=== PATIENT | female | born 1960 | race Caucasian/White ===

== ENCOUNTER 2017-04-27 23:23 | Inpatient (IN) | payer OTHER ==
[~2017-04-27] VITALS: Ht 152.4 cm; Wt 66.8 kg
[~2017-04-27 23:23] MED LIST: ACET500C5 PO; ERYTOPOI LEFT EYE; OMEP40CA6 PO
[2017-04-27 23:34] VITALS: Ht 152.4 cm; Wt 66.8 kg
[2017-04-27] MEDS ORDERED: SOD CHLORIDE 0.9% 500 ML IV STA (23:53)
[2017-04-28 00:51] LABS: INR 0.89; PT RATIO 0.9
[2017-04-28 00:52] LABS: PARTIAL THROMBOPLASTIN TIME 34.8 Sec (25.0-35.0)
[2017-04-28 00:54] LABS: ADD UMIC YES; UR ASCORBIC ACID NEGATIVE (NEGATIVE); UR BILIRUBIN (Dip) NEGATIVE (NEGATIVE); UR BLOOD (Dip) NEGATIVE (NEGATIVE); UR CLARITY CLEAR (CLEAR); UR COLOR COLORLESS (YELLOW); UR GLUCOSE (Dip) NEGATIVE (NEGATIVE); UR KETONES (Dip) NEGATIVE (NEGATIVE); UR LEUKOCYTE ESTERASE (Dip) TRACE Leu/ul (NEGATIVE); UR NITRITE (Dip) NEGATIVE (NEGATIVE); UR RBC 0 /HPF (0-5); UR SPECIFIC GRAVITY (Dip) 1.001 (1.003-1.030); UR TOTAL PROTEIN (Dip) NEGATIVE (NEGATIVE); UR UROBILINOGEN (Dip) NEGATIVE (NEGATIVE)
[2017-04-28 01:10] LABS: BASOPHILS % 0.6 % (0.0-2.0); EOSINOPHILS # 0.1 10^3/ul (0.0-0.5); EOSINOPHILS % 0.8 % (0.0-7.0); HEMATOCRIT 41.5 % (37.0-47.0); HEMOGLOBIN 13.7 g/dl (12.0-16.0); LYMPHOCYTES # 1.7 10^3/ul (0.8-2.9); LYMPHOCYTES % 25.3 % (15.0-51.0); MEAN CORPUSCULAR HEMOGLOBIN 28.7 pg (29.0-33.0); MONOCYTE # 0.6 10^3/ul (0.3-0.9); MONOCYTES % 9.1 % (0.0-11.0); NEUTROPHIL # 4.2 10^3/ul (1.6-7.5); PLATELET COUNT 277 10^3/UL (140-415); RED BLOOD COUNT 4.77 10^6/ul (4.20-5.40); RED CELL DISTRIBUTION WIDTH 13.2 % (11.5-14.5); WHITE BLOOD COUNT 6.6 10^3/ul (4.8-10.8)
[2017-04-28 01:13] LABS: ALANINE AMINOTRANSFERASE 47 IU/L (13-69); ALBUMIN/GLOBULIN RATIO 1.61; ALKALINE PHOSPHATASE 92 IU/L (42-121); ANION GAP 17 (8-16); ASPARTATE AMINO TRANSFERASE 33 IU/L (15-46); BILIRUBIN,INDIRECT 0.2 mg/dl (0-1.1); BILIRUBIN,TOTAL 0.2 mg/dl (0.2-1.3); BLOOD UREA NITROGEN 12 mg/dl (7-20); CALCIUM 9.7 mg/dl (8.4-10.2); CARBON DIOXIDE 26 mmol/L (21-31); CHLORIDE 104 mmol/L (97-110); CREATININE 0.58 mg/dl (0.44-1.00); GLUCOSE 112 mg/dl (70-220); SODIUM 143 mmol/L (135-144); TOTAL PROTEIN 8.1 g/dl (6.1-8.1)
[2017-04-28 01:17] LABS: ACETAMINOPHEN < 10.0 ug/ml (10.0-30.0); ETHANOL < 10.0 mg/dl; SALICYLATE < 1.0 mg/dl (5.0-30.0)
[2017-04-28 02:12] LABS: TROPONIN-I < 0.012 ng/ml (0.00-0.12)
[2017-04-28 02:12] LABS: BARBITURATES Negative (NEGATIVE); BENZODIAZEPINES Negative (NEGATIVE); CANNABINOIDS Negative (NEGATIVE); COCAINE Negative (NEGATIVE); OPIATES Negative (NEGATIVE)
--- NOTE | 2017-04-28 02:56 | RADRPT ---
PROCEDURE: Chest. CLINICAL INDICATION: Chest pain. TECHNIQUE: Single frontal view of the chest was obtained. COMPARISON: None. FINDINGS: The cardiac silhouette is within normal limits. The aortic arch is unremarkable. There is no focal consolidation, vascular congestion or pleural effusion. There is no pneumothorax. IMPRESSION: No evidence for active cardiopulmonary disease. .Nick Sweet MD, MD Date Time Electronically viewed and signed by .Nick Sweet MD, MD on 04/28/2017 02:56 .T/
[2017-04-28] MEDS ORDERED: LORA10CA PO (03:14)
--- NOTE | 2017-04-28 03:23 | RADRPT ---
PROCEDURE: CT head, without contrast. CLINICAL INDICATION: Altered mental status. TECHNIQUE: Noncontrast CT examination of the head, with axial, sagittal and coronal reformatted im ages. Automated dose exposure control was employed. CTDI: 45.01 and DLP: 720.23 COMPARISON: 08/14/2013. FINDINGS: No acute hemorrhage. Subarachnoid spaces are substantially preserved and symmetric. Ventricles ar e unremarkable. No mass effect. Duncan-white matter distinction is preserved without evident decreased attenuation t o suggest acute or recent infarct. Sinuses and osseous structures are unremarkable. IMPRESSION: No acute process in the head. RPTAT: [facility] Physician Nia Date Time Electronically viewed and signed by Physician Nia on 04/28/2017 03:23 RS/
--- NOTE | 2017-04-28 05:29 | ERD ---
ER Documentation Chief Complaint Chief Complaint DAUGHTER STATES PATIENT HAS HAD PERIODS OF CONFUSION TONIGHT P [facility]VENT[facility] HPI This is a 56-year-old female has had periods of confusion that worsened today. It started 3 days ago per the daughter. And the patient. Patient is forgetful about where she is throughout the day. No nausea no vomiting no chills. No focal motor neurological complaints. No visual acuity changes. No other current issues. Patient currently speaks in coherent sentences and answers questions appropriately ROS All systems reviewed and are negative except as per history of present illness. Medications Home Meds Active Scripts Acetaminophen* (Tylophen*) 500 Mg Capsule, 1 CAP PO Q6H Y for PAIN AND OR ELEVATED TEMP, #30 CAP Prov:EARLINE MENESES PA-C 05/17/16 Reported Medications Loratadine* (Claritin*) 10 Mg Capsule, 10 MG PO DAILY, CAP 04/28/17 Omeprazole* (Omeprazole*) 40 Mg Capsule.dr, 40 MG PO QAM, #30 CAP 08/07/15 Discontinued Scripts Erythromycin* (Erythromycin* Ophthalmic) 1 Applic Oint, 1 APPLIC LEFT EYE QID for 7 Days, EA Prov:EARLINE MENESES PA-C 05/17/16 Allergies Allergies: Coded Allergies: penicillin (Verified Allergy, Unknown, 04/27/17) PMhx/Soc History of Surgery: Yes (hysterectomy) Anesthesia Reaction: No Hx Neurological Disorder: No Hx Respiratory Disorders: No Hx Cardiac Disorders: No Hx Psychiatric Problems: No Hx Miscellaneous Medical Probl: No Hx Alcohol Use: Yes (OCCASIONAL) Hx Substance Use: No Hx Tobacco Use: No Smoking Status: Never smoker Physical Exam Vitals Vital Signs Date Time Temp Pulse Resp B/P Pulse Ox O2 Delivery O2 Flow Rate FiO2 04/28/17 05:00 97.7 67 13 135/89 97 Room Air 04/28/17 04:00 97.7 71 14 132/92 99 Room Air 04/28/17 03:00 97.1 79 16 132/83 97 Room Air 04/28/17 02:00 97.1 80 17 144/86 99 Room Air 04/28/17 01:00 97.4 79 12 149/88 99 Room Air 04/28/17 00:25 97.0 88 19 189/102 98 Room Air 04/27/17 23:34 97.0 84 20 173/88 98 Physical Exam Const: [] Head: Atraumatic Eyes: Normal Conjunctiva ENT: Normal External Ears, Nose and Mouth. Neck: Full range of motion..~ No meningismus. Resp: Clear to auscultation bilaterally Cardio: Regular rate and rhythm, no murmurs Abd: Soft, non tender, non distended. Normal bowel sounds Skin: No petechiae or rashes Back: No midline or flank tenderness Ext: No cyanosis, or edema Neur: Awake and alert Psych: Normal Mood and Affect Result Diagram: 04/27/17 0010 04/27/17 0010 Results 24 hrs Laboratory Tests Test 04/27/17 00:10 04/28/17 00:05 04/28/17 00:53 White Blood Count 6.610^3/ul Red Blood Count 4.7710^6/ul Hemoglobin 13.7g/dl Hematocrit 41.5% Mean Corpuscular Volume 87.0fl Mean Corpuscular Hemoglobin 28.7pg Mean Corpuscular Hemoglobin Concent 33.0g/dl Red Cell Distribution Width 13.2% Platelet Count 77337^3/UL Mean Platelet Volume 11.0fl Neutrophils % 64.0% Lymphocytes % 25.3% Monocytes % 9.1% Eosinophils % 0.8% Basophils % 0.6% Nucleated Red Blood Cells % 0.0/100WBC Neutrophils # 4.210^3/ul Lymphocytes # 1.710^3/ul Monocytes # 0.610^3/ul Eosinophils # 0.110^3/ul Basophils # 0.010^3/ul Nucleated Red Blood Cells # 0.010^3/ul Prothrombin Time 12.0Sec Prothrombin Time Ratio 0.9 INR International Normalized Ratio 0.89 Activated Partial Thromboplast Time 34.8Sec Sodium Level 143mmol/L Potassium Level 4.0mmol/L Chloride Level 104mmol/L Carbon Dioxide Level 26mmol/L Anion Gap 17 Blood Urea Nitrogen 12mg/dl Creatinine 0.58mg/dl Glucose Level 112mg/dl Calcium Level 9.7mg/dl Total Bilirubin 0.2mg/dl Direct Bilirubin 0.00mg/dl Indirect Bilirubin 0.2mg/dl Aspartate Amino Transf (AST/SGOT) 33IU/L Alanine Aminotransferase (ALT/SGPT) 47IU/L Alkaline Phosphatase 92IU/L Troponin I < 0.012ng/ml Total Protein 8.1g/dl Albumin 5.0g/dl Globulin 3.10g/dl Albumin/Globulin Ratio 1.61 Salicylates Level < 1.0mg/dl Acetaminophen Level < 10.0ug/ml Ethyl Alcohol Level < 10.0mg/dl Urine Color COLORLESS Urine Clarity CLEAR Urine pH 6.0 Urine Specific [place] 1.001 Urine Ketones NEGATIVEmg/dL Urine Nitrite NEGATIVEmg/dL Urine Bilirubin NEGATIVEmg/dL Urine Urobilinogen NEGATIVEmg/dL Urine Leukocyte Esterase TRACELeu/ul Urine Microscopic RBC 0/HPF Urine Microscopic WBC 0/HPF Urine Hemoglobin NEGATIVEmg/dL Urine Glucose NEGATIVEmg/dL Urine Total Protein NEGATIVEmg/dl Urine Opiates Screen Negative Urine Barbiturates Negative Urine Amphetamines Screen Negative Urine Benzodiazepines Screen Negative Urine Cocaine Screen Negative Urine Cannabinoids Negative Bedside Glucose 110mg/dL Current Medications Medications (Trade) Dose Ordered Sig/Robi Route PRN Reason Start Time Stop Time Status Last Admin Dose Admin Sodium Chloride (NS) 500 ml @ 500 mls/hr Q1H STAT IV 04/27/17 23:53 04/28/17 00:52 DC 04/28/17 00:21 Procedures/MDM EKG: Rate/Rhythm: [Normal Sinus Rhythm] QRS, ST, T-waves: [No changes consistent w/ acute ischemia] Impression: [No evidence of ischemia or arrhythmia] Chest X-ray 1V Interpreted by me: Soft Tissue: No acute abnormalities Bones: No acute abnormalities Mediastinum/Cardiac Silhouette/Lungs: [No acute abnormalities] Medical decision-making: Patient comes in for alteration of mental status. Patient will be admitted for further evaluation and management Departure Diagnosis: Primary Impression: Altered level of consciousness Condition: Stable ABDULAZIZ JORGE Apr 28, 2017 05:29
[2017-04-28 06:06] VITALS: TEMP 97.7
[2017-04-28] MEDS ORDERED: ONDANSETRON 4 MG INJ IV PRN (06:30)
[2017-04-28] MEDS ORDERED: ACETAMINOPHEN 325 MG TAB PO PRN (06:30)
[2017-04-28] MEDS ORDERED: morphine 2 MG INJ IV PRN (06:30)
[2017-04-28] MEDS ORDERED: NACL 0.9% 3 ML SYG IV SCH (06:30)
--- NOTE | 2017-04-28 09:17 | HP ---
Date/Time of Note Date/Time of Note DATE: 04/28/17 TIME: 09:09 Assessment/Plan VTE Prophylaxis VTE Prophylaxis Intervention: heparin Assessment/Plan Assessment/Plan ASSESSMENT 56-year-old female with a history of erosive gastritis presenting with progressively worsening forgetfulness/confusion as well as likely focal weakness PLAN -Patient currently without any significant neurological deficits. Plan is to rule out CVA. Head CT was negative for any acute findings. Will order MRI of the brain, carotid Doppler ultrasound and a 2D echo. -She will be placed on aspirin, statin and subcutaneous heparin for DVT prophylaxis. -She will have a physical therapy evaluation. -Check A1c and fasting lipids in a.m. HPI/ROS Admit Date/Time Admit Date/Time Hx of Present Illness This is a 56-year-old female with a history of erosive gastritis who presented to the emergency department for altered mentation. Over the past few days, patient has been forgetful and at one time she was complaining of right upper extremity weakness. Yesterday at her muslim, patient was noted to be confused with patient not remembering what she was doing. Symptoms of forgetfulness of been progressively getting worse over the past few days. No trauma to the head. When she presented to the ER, her vitals, basic labs, head CT and U- tox have been negative. PMH/Family/Social Past Medical History Medical History: other (Erosive gastritis) Social History Alcohol Use: none Smoking Status: Never smoker Drug Use: none Exam/Review of Systems Vital Signs Vitals Vital Signs Date Time Temp Pulse Resp B/P Pulse Ox O2 Delivery O2 Flow Rate FiO2 04/28/17 07:00 66 14 108/70 99 Room Air 04/28/17 06:06 97.7 Exam Constitutional: alert, oriented, well developed Head: atraumatic, normocephalic Eyes: EOMI, PERRL Respiratory: clear to auscultation, normal air movement Cardiovascular: nl pulses, regular rate and rhythm Gastrointestinal: non-tender, soft Extremities: normal pulses Labs Result Diagram: 04/27/17 0010 04/27/17 0010 Medications Medications Current Medications Ondansetron HCl (Zofran Inj) 4 mg Q6H PRN IV NAUSEA AND/OR VOMITING; Start at 06:30 Aspirin (Aspirin) 81 mg DAILY PO ; Start 04/28/17 at 09:00 Acetaminophen (Tylenol Tab) 650 mg Q6H PRN PO PAIN LEVEL 1-3 OR FEVER; Start 04/28/17 at 06:30 Morphine Sulfate (morphine) 2 mg Q4H PRN IV PAIN LEVEL 7-10; Start 04/28/17 at 06:30 Heparin Sodium (Porcine) (Heparin (5000 Units/0.5 ml)) 5,000 unit Q12 SC ; Start 04/28/17 at 09:00 ABDULAZIZ PORTILLO MD Apr 28, 2017 09:17
[2017-04-28] MEDS: ASPIRIN 81 MG TAB PO SCH (09:26)
[2017-04-28] MEDS: HEPARIN 5,000 UNIT/0.5 ML VIAL SC SCH ×2 (09:31→20:53)
[2017-04-28 09:33] LABS: BASOPHIL # 0.1 10^3/ul (0.0-0.1); EOSINOPHILS # 0.1 10^3/ul (0.0-0.5); HEMATOCRIT 40.3 % (37.0-47.0); HEMOGLOBIN 13.5 g/dl (12.0-16.0); LYMPHOCYTES # 1.5 10^3/ul (0.8-2.9); LYMPHOCYTES % 28.7 % (15.0-51.0); MEAN CORPUSCULAR HEMOGLOBIN 29.1 pg (29.0-33.0); MEAN CORPUSCULAR HGB CONC 33.5 g/dl (32.0-37.0); MEAN CORPUSCULAR VOLUME 86.9 fl (82.0-101.0); MEAN PLATELET VOLUME 10.8 fl (7.4-10.4); MONOCYTE # 0.5 10^3/ul (0.3-0.9); NEUTROPHIL # 3.1 10^3/ul (1.6-7.5); NEUTROPHILS % 60.1 % (39.0-77.0); PLATELET COUNT 251 10^3/UL (140-415); RED BLOOD COUNT 4.64 10^6/ul (4.20-5.40); RED CELL DISTRIBUTION WIDTH 13.3 % (11.5-14.5); WHITE BLOOD COUNT 5.1 10^3/ul (4.8-10.8)
[2017-04-28 10:08] LABS: ALANINE AMINOTRANSFERASE 53 IU/L (13-69); ALBUMIN 4.2 g/dl (3.3-4.9); ALBUMIN/GLOBULIN RATIO 1.23; ALKALINE PHOSPHATASE 77 IU/L (42-121); ANION GAP 11 (8-16); ASPARTATE AMINO TRANSFERASE 31 IU/L (15-46); BILIRUBIN,INDIRECT 0.4 mg/dl (0-1.1); BILIRUBIN,TOTAL 0.4 mg/dl (0.2-1.3); BLOOD UREA NITROGEN 10 mg/dl (7-20); CALCIUM 9.6 mg/dl (8.4-10.2); CARBON DIOXIDE 29 mmol/L (21-31); CHLORIDE 107 mmol/L (97-110); CHOL/HDL RATIO 2.6 RATIO; CHOLESTEROL 177 mg/dl (100-200); CREATININE 0.51 mg/dl (0.44-1.00); GLUCOSE 108 mg/dl (70-220); HDL CHOLESTEROL 66 mg/dl (37-92); SODIUM 143 mmol/L (135-144); TOTAL PROTEIN 7.6 g/dl (6.1-8.1); TRIGLYCERIDES 77 mg/dl (0-149)
[2017-04-28 10:16] LABS: TROPONIN-I < 0.012 ng/ml (0.00-0.12)
[2017-04-28 11:10] LABS: FOLATE > 20.0 ng/ml (2.8-20.0)
--- NOTE | 2017-04-28 12:32 | RADRPT ---
PROCEDURE: US Carotids. CLINICAL INDICATION: bruit , DIZZY TECHNIQUE: Multiple sonographic of the carotid bifurcation region and vertebral arteries were obta ined utilizing sullivan scale, duplex and color-flow imaging. The images were reviewed on a PACS worksta tion. COMPARISON: No prior studies are available for comparison. FINDINGS: Evaluation of the right carotid bifurcation region reveals no significant calcific atherosclerotic d isease. Evaluation of the left carotid bifurcation region reveals no significant calcific atherosclerotic di sease. There is antegrade flow within the vertebral arteries bilaterally. RIGHT CAROTID MEASUREMENTS: Common Carotid Granfb40 (cm/sec) Internal Carotid Artery - [id number] (cm/sec) Internal Carotid Artery - mid55.4 (cm/sec) Internal Carotid Artery - mhjyau60.6 (cm/sec) Internal Carotid/Common Carotid1.31 LEFT CAROTID MEASUREMENTS: Common Carotid Jcnwzv59.3 (cm/sec) Internal Carotid Artery - cibrijug08.3 (cm/sec) Internal Carotid Artery - mid52.6 (cm/sec) Internal Carotid Artery - .2 (cm/sec) Internal Carotid/Common Carotid0.88 RPTAT: AA IMPRESSION: No evidence for hemodynamically significant stenosis in the bilateral internal carotid arteries - va lidated velocity measurements with angiographic measurements, velocity criteria are extrapolated fro m diameter data as defined by the Society of Radiologists in Ultrasound Consensus Conference Radiolo gy 2003; 229;340-346. This study does indirectly reference the measurement of the distal ICA diamet er as the denominator for stenosis measurement. Normal antegrade flow in the vertebral arteries bilaterally. .Omkar Gerard MD, Date Time Electronically viewed and signed by .Omkar Gerard MD, MD on 04/28/2017 12:32 .S/
--- NOTE | 2017-04-28 14:07 | RADRPT ---
Echocardiogram Report Patient Name: HARVINDER MARTINEZ Gender: Female Date: 1960 Study Date: 28-Apr-2017 [employer] Cord: Kostas [facility] Location: [facility] Ref. Physician: ABDULAZIZ PORTILLO Quality: Adequate Procedures: Transthoracic echocardiogram with complete 2D, M-Mode, and doppler examination. Indications: Dizzy. 2D/M Mode Doppler Measurement Value Normal Ranges Measurement Value Normal Ranges LVIDd 2D 3.5 3.5 - 5.6 cm AV Peak Larry 1.3 m/sec LVIDs 2D 2.2 2.1 - 4.1 cm AV Peak PG 7.0 mmHg FS 2D 36.0 % LVOT Peak Larry 0.9 m/sec LVPWd 2D 1.3 0.6 - 1.1 cm LVOT Peak PG 3.0 mmHg IVSd 2D 1.3 0.6 - 1.1 cm MV E Peak Larry 0.7 m/sec IVS/LVPW 2D 1.0 MV A Peak Larry 0.9 m/sec AoR Diam 2D 2.6 2.0 - 3.7 cm MV E/A 0.8 LA/Ao 2D 1 0 - 1 MV Decel Time 225 msec EDV 2D 42.9 cm3 MV E/A 0.8 ESV 2D 11.2 cm3 TR Peak Larry 2.3 m/sec LA Dimen 2D 2.9 2.3 - 4.0 cm TR Peak PG 22.0 mmHg RVSP 25.0 mmHg Findings Left Ventricle: Normal left ventricular systolic function. Normal left ventricular cavity size. Mild concentric left ventricular hypertrophy. Ejection fraction is visually estimated at 5560 %. Abnormal Diastolic Function. Right Ventricle: Normal right ventricular size. Normal right ventricular systolic function. Left Atrium: The left atrium is normal in size. Right Atrium: The right atrium is normal in size. Mitral Valve: Mild mitral leaflet calcification. Mild mitral annular calcification. Trace mitral regurgitation. Aortic Valve: Normal appearance of the aortic valve. No significant aortic stenosis or insufficiency. Tricuspid Valve: Normal appearance of the tricuspid valve. Estimated peak PA systolic pressure 25 mmHg. There is trace tricuspid regurgitation. Pulmonic Valve: Pulmonic valve not well visualized. There is trace pulmonic regurgitation. Pericardium: Normal pericardium with no significant pericardial effusion. Aorta: Normal aortic root. IVC: Normal size and normal respiratory collapse consistent with normal right atrial pressure. Conclusions 1.The left ventricle is normal in size and systolic function. 2.Estimated left ventricular ejection fraction of 55-60%. 3.Mild concentric left ventricular hypertrophy. Electronically Signed By: Wilber Bass 28-Apr-2017 14:07:13 -0700 Patient Name: HARVINDER MARTINEZ Study Date: 28-Apr-2017 [id number]
[2017-04-28 18:45] VITALS: BP 157/87; PULSE 92; RESP 18
[2017-04-28 20:04] VITALS: PULSE 85
--- NOTE | 2017-04-28 22:09 | RADRPT ---
PROCEDURE: MR Brain noncontrast. CLINICAL INDICATION: Dizziness. Altered mental status. TECHNIQUE: Multiplanar multisequence noncontrast MRI of the brain was performed. COMPARISON: CT brain 04/28/2017 at 12:40 a.m. FINDINGS: There is no restricted diffusion to suggest acute ischemia/infarct. There is no evidence of acute in tracranial hemorrhage, midline shift, or mass effect. No extra-axial collection is seen. The cerebra l sulci and ventricles are within normal limits in size and configuration for patient's age. A few s mall T2 / FLAIR hyperintense foci scattered in the deep and subcortical cerebral white matter are no nspecific, but may be seen with mild chronic microangiopathic change, complicated migraine, and sequ elae of other inflammatory/infectious etiologies. There is a partially empty sella, nonspecific. The parasellar and suprasellar regions are grossly unremarkable. The basal cisterns are preserved. The brainstem and cerebellum are within normal limits in size, morphology, and signal intensity. The int racranial large vascular flow voids are preserved, suggesting patency. There is mild scattered mucos al thickening in the ethmoid sinuses bilaterally. No air-fluid levels are seen. No mastoid effusion is noted. The bone marrow signal intensity is within normal limits. No destructive osseous lesion is identified. IMPRESSION: 1. No evidence of an acute intracranial process. 2. A few small T2 / FLAIR hyperintense foci scattered in the deep and subcortical cerebral white mat ter are nonspecific, but may be seen with mild chronic microangiopathic change, complicated migraine , and sequelae of other inflammatory/infectious etiologies. 3. Partially empty sella turcica, nonspecific. RPTAT: [facility] Physician Meka Date Time Electronically viewed and signed by Physician Meka on 04/28/2017 22:09 BINA/
[2017-04-28 22:14] VITALS: BP 135/84; PULSE 66; RESP 16
[2017-04-28] MEDS ORDERED: hydrALAzine 20 MG INJ IV PRN (22:30)
[2017-04-28 22:59] VITALS: PULSE 74
[2017-04-28 23:20] VITALS: PULSE 74
[2017-04-29] VITALS (8 sets, daily range): BP systolic 110–118; BP diastolic 66–76; PULSE 67–81; RESP 16–18
[2017-04-29] MEDS ORDERED: PANTOPRAZOLE (EC) 40 MG TAB PO SCH (06:00)
[2017-04-29 07:47] LABS: BASOPHIL # 0.1 10^3/ul (0.0-0.1); BASOPHILS % 1.1 % (0.0-2.0); EOSINOPHILS # 0.1 10^3/ul (0.0-0.5); EOSINOPHILS % 1.5 % (0.0-7.0); HEMATOCRIT 41.7 % (37.0-47.0); HEMOGLOBIN 13.6 g/dl (12.0-16.0); LYMPHOCYTES # 1.5 10^3/ul (0.8-2.9); LYMPHOCYTES % 32.7 % (15.0-51.0); MEAN CORPUSCULAR HEMOGLOBIN 28.3 pg (29.0-33.0); MEAN CORPUSCULAR HGB CONC 32.6 g/dl (32.0-37.0); MEAN CORPUSCULAR VOLUME 86.7 fl (82.0-101.0); MONOCYTE # 0.4 10^3/ul (0.3-0.9); MONOCYTES % 9.5 % (0.0-11.0); NEUTROPHIL # 2.5 10^3/ul (1.6-7.5); PLATELET COUNT 268 10^3/UL (140-415); RED BLOOD COUNT 4.81 10^6/ul (4.20-5.40); RED CELL DISTRIBUTION WIDTH 13.2 % (11.5-14.5); WHITE BLOOD COUNT 4.5 10^3/ul (4.8-10.8)
[2017-04-29 08:12] LABS: CALCIUM 9.4 mg/dl (8.4-10.2); CREATININE 0.55 mg/dl (0.44-1.00); PHOSPHORUS 4.7 mg/dl (2.5-4.9); POTASSIUM 4.3 mmol/L (3.5-5.1)
[2017-04-29] MEDS: ASPIRIN 81 MG TAB PO SCH (09:15)
[2017-04-29] MEDS: HEPARIN 5,000 UNIT/0.5 ML VIAL SC SCH (09:58)
--- NOTE | 2017-04-29 10:42 | PDOCDIS ---
Discharge Instructions CONDITION Patient Condition: Stable ACTIVITY: Activity Restrictions: Slowly Increase Activity FOLLOW UP/APPOINTMENTS Follow-up Plan 1. Follow up with your primary care provider as soon as possible 2. Continue allergy medications and all medications as directed EDGAR ARAUJO Apr 29, 2017 10:42
[2017-04-29] MEDS ORDERED: INFLUENZA VIRUS VACCINE 0.5 ML SYG IM* ONE (13:00)
--- NOTE | 2017-04-29 17:49 | DS ---
Date/Time of Note Date/Time of Note DATE: 04/29/17 TIME: 17:49 Discharge Summary Admission/Discharge Info Admit Date/Time Apr 28, 2017 at 02:35 Discharge Date/Time Apr 29, 2017 at 14:10 Patient Condition: Stable Hx of Present Illness This is a 56-year-old female with a history of erosive gastritis who presented to the emergency department for altered mentation. Over the past few days, patient has been forgetful and at one time she was complaining of right upper extremity weakness. Yesterday at her muslim, patient was noted to be confused with patient not remembering what she was doing. Symptoms of forgetfulness of been progressively getting worse over the past few days. No trauma to the head. When she presented to the ER, her vitals, basic labs, head CT and U- tox have been negative. Hospital Course Patient is a 56-year-old female with a past medical history of gastritis who presents to the emergency department for altered mentation. Patient's symptoms and history is more consistent with acute delirium and/or dementia versus sequelae of migraines given patient's history of migraines. Was admitted into the medicine service and evaluated. Patient underwent extensive laboratory testing as well as imaging. CT of the head did not show any acute pathology, carotid ultrasound was within normal limits, MRI of the brain was nonspecific but did not show any acute issues. It is highly unlikely patient suffered a TIA or CVA tenderness admission given that the patient was found confused while driving appropriately. Patient had no episodes of confusion during this admission and it is highly likely this is an isolated incident. It was recommended that if similar occurrences happen, patient should be worked up for other issues such as complex migraines or dementia workup. Patient understands and will follow up with her primary care provider soon as possible Discharge diagnoses Altered mental status, unknown cause, unlikely CVA Confusion, resolved Gastritis, chronic Migraines, intermittent Allergies Sinus issues, chronic Home Meds Active Scripts Acetaminophen* (Tylophen*) 500 Mg Capsule, 1 CAP PO Q6H Y for PAIN AND OR ELEVATED TEMP, #30 CAP Prov:EARLINE MENESES PA-C 05/17/16 Reported Medications Loratadine* (Claritin*) 10 Mg Capsule, 10 MG PO DAILY, CAP 04/28/17 Omeprazole* (Omeprazole*) 40 Mg Capsule.dr 40 MG PO QAM, #30 CAP 08/07/15 Discontinued Scripts Erythromycin* (Erythromycin* Ophthalmic) 1 Applic Oint, 1 APPLIC LEFT EYE QID for 7 Days, EA Prov:EARLINE MENESES PA-C 05/17/16 Follow-up Plan 1. Follow up with your primary care provider as soon as possible 2. Continue allergy medications and all medications as directed Primary Care Provider Alexandra Will DO Time spent on discharge: > 30 minutes Pending Labs Laboratory Tests Test 04/29/17 07:00 White Blood Count 4.510^3/ul (4.8-10.8) Red Blood Count 4.8110^6/ul (4.20-5.40) Hemoglobin 13.6g/dl (12.0-16.0) Hematocrit 41.7% (37.0-47.0) Mean Corpuscular Volume 86.7fl (82.0-101.0) Mean Corpuscular Hemoglobin 28.3pg (29.0-33.0) Mean Corpuscular Hemoglobin Concent 32.6g/dl (32.0-37.0) Red Cell Distribution Width 13.2% (11.5-14.5) Platelet Count 86415^3/UL (140-415) Mean Platelet Volume 11.0fl (7.4-10.4) Neutrophils % 55.0% (39.0-77.0) Lymphocytes % 32.7% (15.0-51.0) Monocytes % 9.5% (0.0-11.0) Eosinophils % 1.5% (0.0-7.0) Basophils % 1.1% (0.0-2.0) Nucleated Red Blood Cells % 0.0/100WBC (0.0-0.0) Neutrophils # 2.510^3/ul (1.6-7.5) Lymphocytes # 1.510^3/ul (0.8-2.9) Monocytes # 0.410^3/ul (0.3-0.9) Eosinophils # 0.110^3/ul (0.0-0.5) Basophils # 0.110^3/ul (0.0-0.1) Nucleated Red Blood Cells # 0.010^3/ul (0.0-0.0) Sodium Level 140mmol/L (135-144) Potassium Level 4.3mmol/L (3.5-5.1) Chloride Level 106mmol/L (97-110) Carbon Dioxide Level 26mmol/L (21-31) Anion Gap 12 (8-16) Blood Urea Nitrogen 15mg/dl (7-20) Creatinine 0.55mg/dl (0.44-1.00) Glucose Level 104mg/dl (70-220) Calcium Level 9.4mg/dl (8.4-10.2) Phosphorus Level 4.7mg/dl (2.5-4.9) Magnesium Level 2.0mg/dl (1.7-2.5) EDGAR ARAUJO Apr 29, 2017 17:49
[2017-04-30] MEDS ORDERED: INFLUENZA VIRUS VACCINE 0.5 ML SYG IM* ONE (10:00)
== END 2017-04-29 14:10 | disposition home or self-care (01) | DRG 948 ==
LOC: E/R 23:23 → MS3 04-28 02:35 → MS4 04-28 22:55
PROVIDERS: ADMIT Internal Medicine; ATTEND Internal Medicine
DX: R41.82 Altered mental status, unspecified (principal); F03.90 Unspecified dementia, unspecified severity, without behavioral disturbance, psychotic disturbance, mood disturbance, and anxiety; R53.1 Weakness; R41.0 Disorientation, unspecified; G43.909 Migraine, unspecified, not intractable, without status migrainosus; J32.8 Other chronic sinusitis
CPT/HCPCS: 36415; 70450; 70551; 71010; 80048; 80053; 80061; 80306; 80307; 81001; 82607; 82746; 82962; 83036; 83735; 84100; 84443; 84484; 85025; 85610; 85730; 87086; 90686; 93005; 93306; 93880; 96372; J1644; J7040

== ENCOUNTER 2018-04-14 21:35 | Emergency (ER) | END 2018-04-14 23:11 | disposition home or self-care (01) ==

== ENCOUNTER 2018-10-03 15:46 | Emergency (ER) | payer OTHER ==
[~2018-10-03] VITALS: Wt 65.6 kg
[~2018-10-03 15:46] MED LIST changes: +CYCL10TA7 PO; +DICL100G37 TOP; -ERYTOPOI LEFT EYE; +LORA10CA PO; +NAPR-985 PO
[2018-10-03 16:06] VITALS: BP 149/70; PULSE 63; RESP 22
[2018-10-03] MEDS ORDERED: TETRACAINE 0.5% 4 ML OPH RIGHT EYE ONE (19:00)
[2018-10-03] MEDS ORDERED: FLUORESCEIN STRIP RIGHT EYE ONE (19:00)
[2018-10-03] MEDS ORDERED: OFLO5DRO46 RIGHT EYE (19:29)
--- NOTE | 2018-10-03 19:34 | ERD ---
ER Documentation Chief Complaint Chief Complaint R eye feels like it has sand since last night; pain, teary. vision OK HPI This is a 58-year-old female presents ED with complaints of right eye irritation since last night. Patient admits to a foreign body sensation. Patient denies any trauma to globe. Denies any blurry vision, changes in vision. Admits to increased tearing. Feels as though there is a piece of sand in her eye. Denies fever, chills, headache, worst headache of life, neck pain and all other symptoms. Does not wear contacts or glasses ROS All systems reviewed and are negative except as per history of present illness. Medications Home Meds Active Scripts Ofloxacin* (Ocuflox*) 0.3%-5 Ml Ophth Drops, 1 DROP RIGHT EYE QID for 7 Days, BOTTLE Prov:WILFRID SEGAL PA-C 10/03/18 Diclofenac Sodium* (Voltaren* Gel) 1% -100 Gm Gel, 2 GM TOP QID, #1 TUB Prov:RUSS ROSENTHAL PA-C 04/14/18 Cyclobenzaprine Hcl* (Cyclobenzaprine Hcl*) 10 Mg Tablet, 10 MG PO TID, #15 TAB Prov:RUSS ROSENTHAL PA-C 04/14/18 Naproxen* (Naprosyn*) 500 Mg Tablet, 500 MG PO BID PRN for PAIN AND/OR INFLAMMATION, #30 TAB Prov:RUSS ROSENTHAL PA-C 04/14/18 Acetaminophen* (Tylophen*) 500 Mg Capsule, 1 CAP PO Q6H PRN for PAIN AND OR ELEVATED TEMP, #30 CAP Prov:EARLINE MENESES PA-C 05/17/16 Reported Medications Loratadine* (Claritin*) 10 Mg Capsule, 10 MG PO DAILY, CAP 04/28/17 Omeprazole* (Omeprazole*) 40 Mg Capsule.dr, 40 MG PO QAM, #30 CAP 08/07/15 Allergies Allergies: Coded Allergies: penicillin (Verified Allergy, Unknown, 04/14/18) PMhx/Soc Medical and Surgical Hx: pt denies Medical Hx, pt denies Surgical Hx History of Surgery: No Anesthesia Reaction: No Hx Neurological Disorder: No Hx Respiratory Disorders: No Hx Cardiac Disorders: No Hx Psychiatric Problems: No Hx Miscellaneous Medical Probl: No Hx Alcohol Use: No Hx Substance Use: No Hx Tobacco Use: No Smoking Status: Never smoker Physical Exam Vitals Vital Signs Date Temp Pulse Resp B/P (MAP) Pulse Ox O2 O2 Flow FiO2 Time Delivery Rate 10/03/18 98.9 63 22 149/70 98 16:06 (96) Physical Exam Const: No acute distress Head: Atraumatic Eyes: Normal Conjunctiva, increased tearing of right eye, no obvious foreign body, Visual Chandra: Intact in all four quadrants bilaterally Lac ducts/glands: No swelling Lids w/ evertion: Normal, no foreign body Conj/[place]: Clear, there is a positive fluorescein uptake on patient's 4 o'clock position on patient's right eye, no Rachel sign, no drooping pupil, no pupil distortion, ENT: Normal External Ears, Nose and Mouth. Neck: Full range of motion. No meningismus. Resp: Clear to auscultation bilaterally Cardio: Regular rate and rhythm, no murmurs Neur: Awake and alert Psych: Normal Mood and Affect Results 24 hrs Current Medications Medications Dose Sig/Robi Start Time Status Last (Trade) Ordered Route PRN Stop Time Admin Dose Reason Admin Tetracaine 1 drop ONCE ONCE 10/03/18 DC HCl RIGHT EYE 19:00 (Tetracaine 10/03/18 19:01 0.5% Steri-Unit Winnie) Fluorescein 1 strip ONCE ONCE 10/03/18 DC Sodium RIGHT EYE 19:00 (Lhcep-P-Fulj 10/03/18 19:01 p) Procedures/MDM ER COURSE: The patient was stable throughout ED course. I kept the patient and/or family informed of laboratory and diagnostic imaging results throughout the emergency room course. The patient was promptly evaluated and a treatment plan was devised based on H&P and other data. This plan was discussed with the patient who agreed and had no further questions or concerns prior to discharge. MEDICAL DECISION MAKING: This is a 58-year-old female presents ED with right ear irritation and foreign body sensation since last night. Fluorescein stain shows a corneal abrasion on the 4 o'clock position on patient's right eye. Suspicion for orbital cellulitis is low. Patient does not have any eye pain or painful extraocular movements and there is no surrounding erythema. Patient is afebrile and extremely well- appearing. Patient has denied any trauma to the eye and any vision loss or vision changes. No evidence of globe perforation or other ophthalmic emergencies. Pt will be sent home with abx, pt is to follow-up with her primary care doctor within 1-2 days. Patient does not wear contacts or glasses. Return to ER sooner if symptoms worsen. My medical decision making shared with the patient she understands and agrees with plan. DISPOSITION PLAN: We discussed follow up with the patient's primary care doctor within 24 to 48 hours. Patient counseled regarding my diagnostic impression and care plan. Prior to discharge all questions answered. Pt agrees with treatment plan and understands strict return precautions. Precautionary instructions provided including instructions to return to the ER if not improving or for any worsening or changing symptoms or concerns. ExitCare instructions provided. Prior to discharge, patients vital signs have been reviewed SPECIALIST FOLLOW UP RECOMMENDED: [facility] Patient has been advised to follow up with primary care in 1-2 days. Disclaimer: Inadvertent spelling and grammatical errors are likely due to EHR/dictation software use and do not reflect on the overall quality of patient care. Also, please note that the electronic time recorded on this note does not necessarily reflect the actual time of the patient encounter. Departure Diagnosis: Primary Impression: Corneal abrasion, right Encounter type: initial encounter Qualified Codes: S05.01XA - Injury of conjunctiva and corneal abrasion without foreign body, right eye, initial encounter Condition: Stable Patient Instructions: Corneal Abrasion [facility] Usted se hill hecho un examen mdico de control que le indica que no est en radha condicin que requiera tratamiento urgente en el Departamento de Emergencia. Un estudio ms profundo y el tratamiento de coyne condicin pueden esperar sin ningn riesgo hasta que usted sea atendida/o en el consultorio de coyne mdico o radha clnica. Es responsabilidad suya arreglar radha sari para el seguimiento del roxanna. MANEJO DE CONDICIONES NO URGENTES EN EL FUTURO 1) Si usted tiene un mdico de atencin primaria: Usted debera llamar a coyne mdico de atencin primaria antes de venir al departamento de emergencia. Despus de las horas de consultorio, coyne doctor o coyne asociado/a est disponible por telfono. El mdico o enfermero de forrest en el servicio telefnico puede asesorarle por sheyla medio para atender el problema, o roxanna contrario se puede programar radha sari. 2) Si usted no tiene un mdico de atencin primaria: Llame al mdico o clnica de referencia que aparece abajo lyndsey las horas de consultorio para hacer radha sari para que le vean. CLINICAS: [place] [phone] [address] [facility] [phone] [address] [facility] [phone] [address] [facility] [place] [address] [phone] [facility]. [place] [phone] [place] [phone] [address] [facility] Hours: Mon - Fri 9:00 AM - 5:00 PM Additional Instructions: Paciente aconseja volver a Departamento de urgencias inmediatamente para sntomas nuevos o que empeoran . Paciente aconseja posteriores con el PCP en 1-2 abdalla . Paciente verbaliza la comprehensin y est de acuerdo con el tratamiento y el curso de accin. Si el paciente no tiene ninguna de atencin primaria pueden seguir con [facility] [address] [place] [address] o [facility] + [address] [address] WILFRID SEGAL PA-C Oct 03, 2018 19:34
== END 2018-10-03 19:42 | disposition home or self-care (01) ==
LOC: FTE 15:46
DX: S05.01XA Injury of conjunctiva and corneal abrasion without foreign body, right eye, initial encounter (principal); X58.XXXA Exposure to other specified factors, initial encounter; Y92.9 Unspecified place or not applicable
CPT/HCPCS: 99283

== ENCOUNTER 2019-02-23 14:50 | Emergency (ER) | payer OTHER ==
[~2019-02-23] VITALS: Ht 157.5 cm; Wt 64.0 kg
[~2019-02-23 14:50] MED LIST changes: +CEPH-443 PO; +OFLO5DRO46 RIGHT EYE
[2019-02-23 14:54] VITALS: Ht 157.5 cm; Wt 64.0 kg
[2019-02-23] MEDS ORDERED: SOD CHLORIDE 0.9% 100 ML ONE (16:50)
[2019-02-23] MEDS ORDERED: IOHEXOL 300MG/ML 150 ML BTL ONE (16:50)
[2019-02-23 17:51] VITALS: BP 119/71; PULSE 80; RESP 18
== END 2019-02-23 17:53 | disposition home or self-care (01) ==
LOC: FTE 14:50
DX: Z00.01 Encounter for general adult medical examination with abnormal findings (principal); K76.89 Other specified diseases of liver
CPT/HCPCS: 74178; 80053; 81001; 81025; 85025; 99284; Q9967